=== PATIENT | female | born 1935 | race Caucasian/White ===

== ENCOUNTER 2017-09-04 07:00 | Day surgery (SDC) | payer MEDICARE, OTHER ==
[2017-09-03 14:36] VITALS: BMI 29.7
[2017-09-04] MEDS ORDERED: Oxymetazoline HCl 0.05% ( 15 ML ) ONE ×2 (07:54→08:30)
[2017-09-04 08:08] LABS: Hemoglobin 13.5 g/dL (12.0-16.0); Mean Corpuscular HGB CONC 32.6 g/dL (32.0-36.0); Mean Corpuscular Hemoglobin 29.1 pg (27.0-31.0); Mean Corpuscular Volume 89.2 fL (78.0-98.0); Mean Platelet Volume 9.4 fL (7.4-10.4); Platelet Count 186 thou/uL (130-400); RBC Distribution Width 15.4 % (11.5-14.5); Red Blood Cell (RBC) Count 4.64 mill/uL (4.20-5.40); White Blood Cell (WBC) Count 7.2 thou/uL (4.8-10.8)
[2017-09-04 08:22] LABS: Anion Gap 14 mmol/L (10-20); BUN (Urea Nitrogen) 35 mg/dL (9.8-20.1); Calc. Creatinine Clearance 42 mL/min (70-130); Calcium 9.3 mg/dL (7.8-10.44); Carbon Dioxide 28 mmol/L (23-31); Chloride 105 mmol/L (98-107); Estimated GFR-MDRD 35; Glucose 121 mg/dL (83-110); Potassium 5.4 mmol/L (3.5-5.1); Sodium 142 mmol/L (136-145)
[2017-09-04] MEDS ORDERED: Lidocaine 1% w/Epinephrine 1:100K 30 ML VIAL ONE (08:30)
[2017-09-04] MEDS ORDERED: Famotidine/PF 20 mg/2ml Vial ONE (08:35)
[2017-09-04] MEDS ORDERED: Fentanyl 100 MCG/2 ML VIAL ONE (08:35)
[2017-09-04] MEDS ORDERED: Hydrocodone-Acetamin 15 ML UDCUP ONE (10:59)
--- NOTE | 2017-09-04 13:31 | OP ---
PREOPERATIVE DIAGNOSES: 1. Chronic sphenoid sinusitis. 2. Recurrent acute sinusitis. 3. Bilateral inferior turbinate hypertrophy. 4. Nasal obstruction. POSTOPERATIVE DIAGNOSES: 1. Chronic sphenoid sinusitis. 2. Recurrent acute sinusitis. 3. Bilateral inferior turbinate hypertrophy. 4. Nasal obstruction. SURGEON: Arpan Aj M.D. PROCEDURES: 1. Bilateral endoscopic sinus surgery, total ethmoidectomies. 2. Bilateral endoscopic sinus surgery, maxillary antrostomies. 3. Bilateral endoscopic sinus surgery, sphenoidotomy. 4. Bilateral endoscopic sinus surgery, frontal sinusotomy. 5. Bilateral inferior turbinate submucosal resection. SURGEON: Arpan Aj M.D. ESTIMATED BLOOD LOSS: 20 mL COMPLICATIONS: None. ANESTHESIA: GETA. PROCEDURE IN DETAIL: The patient was taken to the operating room and placed on the table. General e ndotracheal anesthesia was obtained by the Anesthesia staff. The tube was secured in the left lower lip. The patient was then placed in the beach chair position. Afrin pledgets were placed in the sandy al cavity as the patient was prepped and draped for standard nasal procedure. Following this, Afrin pledgets were removed. The 0 degree endoscope was used to examine the nasal cavity, which was noted to have inflamed mucosa of the middle turbinates and purulence was noted from the sphenoid ostia bila terally. Following this, injections of 1% lidocaine with 1:100,000 epinephrine were made into the in ferior turbinates, middle turbinates and the lateral nasal wall bilaterally. Following this, the mid dle turbinates were gently lateralized with the [place] elevator to provide access to the sphenoid rece ss. The superior turbinates were identified, staying just medial and inferior to the attachment to t he posterior nasal wall. sphenoidotomies bilaterally. The sphenoidotomies were then widened m edially and inferiorly using the 0 degree microdebrider. Thick purulence and inflamed mucosa was rem ant from the bilateral sphenoid sinuses. Following this, the middle turbinates were gently medializ ed with a [place] elevator. The uncinate process was then anteriorly fractured with a ball-ended probe and removed using the straight [place] forceps and the upbiting [place] forceps and the microdeb rider. Following this, the curved awl ended probe was used to identify the maxillary sinus ostia eddi aterally. Following this, the curved microdebrider and the straight [place] forceps were used to w iden the maxillary antrostomies bilaterally. Following this, the ethmoidal bulla was identified bila terally and was punctured on its medial and inferior aspect and was removed using the microdebrider a nd [place] forceps. Following this, the grand lamella was identified and was punctured into the po sterior ethmoidal cells. Working from posterior to anterior, the ethmoidal cells were opened in a mu cosal-sparing technique. Following this, the 45 degree scope and the curved microdebrider were used to further open the frontal recess cells identifying the frontal sinus ostia bilaterally. This ostia was then widened bilaterally using the curved microdebrider and upbiting [place] forceps. Followi ng this, inferior turbinates were punctured on their anterior and inferior aspect with the submucosal microdebrider and submucosal resection was performed of the anterior and inferior portions of the in ferior turbinates bilaterally. On this, the nasal cavity was irrigated. MeroPacks were placed withi n the middle meatus. The patient tolerated the procedure well.
[2017-09-04] MEDS ORDERED: PROPOFOL 200 MG/20 ML VIAL ONE (14:23)
[2017-09-04] MEDS ORDERED: Lidocaine 1% PF 5 ML VIAL ONE (14:23)
[2017-09-04] MEDS ORDERED: Metoclopramide HCl 10 MG/2 ML VIAL ONE (14:23)
[2017-09-04] MEDS ORDERED: Ondansetron HCl/PF 4 MG/2 ML Vial ONE (14:23)
== END 2017-09-04 12:10 | disposition home or self-care (01) ==
LOC: SDC 07:00
PROVIDERS: ATTEND Otolaryngology Plastic Surgery within the Head & Neck
PROC: 09TV8ZZ Resection of Left Ethmoid Sinus, Via Natural or Artificial Opening Endoscopic (ICD-10-PCS; principal; 2017-09-04)
PROC: 09TU8ZZ Resection of Right Ethmoid Sinus, Via Natural or Artificial Opening Endoscopic (ICD-10-PCS; 2017-09-04)
PROC: 099R8ZZ Drainage of Left Maxillary Sinus, Via Natural or Artificial Opening Endoscopic (ICD-10-PCS; 2017-09-04)
PROC: 099Q8ZZ Drainage of Right Maxillary Sinus, Via Natural or Artificial Opening Endoscopic (ICD-10-PCS; 2017-09-04)
PROC: 099X8ZZ Drainage of Left Sphenoid Sinus, Via Natural or Artificial Opening Endoscopic (ICD-10-PCS; 2017-09-04)
PROC: 099W8ZZ Drainage of Right Sphenoid Sinus, Via Natural or Artificial Opening Endoscopic (ICD-10-PCS; 2017-09-04)
PROC: 09BT8ZZ Excision of Left Frontal Sinus, Via Natural or Artificial Opening Endoscopic (ICD-10-PCS; 2017-09-04)
PROC: 09BS8ZZ Excision of Right Frontal Sinus, Via Natural or Artificial Opening Endoscopic (ICD-10-PCS; 2017-09-04)
PROC: 09BL8ZZ Excision of Nasal Turbinate, Via Natural or Artificial Opening Endoscopic (ICD-10-PCS; 2017-09-04)
DX: J01.91 Acute recurrent sinusitis, unspecified (principal); J32.3 Chronic sphenoidal sinusitis; J34.3 Hypertrophy of nasal turbinates; J34.89 Other specified disorders of nose and nasal sinuses; H81.11 Benign paroxysmal vertigo, right ear; H69.80 Other specified disorders of Eustachian tube, unspecified ear; J30.9 Allergic rhinitis, unspecified; H91.90 Unspecified hearing loss, unspecified ear; Z88.1 Allergy status to other antibiotic agents; Z88.8 Allergy status to other drugs, medicaments and biological substances; Z79.82 Long term (current) use of aspirin; Z79.899 Other long term (current) drug therapy
CPT/HCPCS: 36415; 80048; 85027; J0131; J2001; J2405; J2704; J2765; J3010; S0028